=== PATIENT | male | born 1985 | race Caucasian/White ===

== ENCOUNTER 2022-06-06 07:28 | Outpatient (CLI) | payer BC | END 2022-06-06 07:29 | disposition home or self-care (01) | LOC: BICULT 07:28 | PROVIDERS: ATTEND Internal Medicine Gastroenterology | DX: R79.89 Other specified abnormal findings of blood chemistry (principal); R16.1 Splenomegaly, not elsewhere classified; K76.89 Other specified diseases of liver | CPT/HCPCS: 76705 ==